=== PATIENT | male | born 1955 | race Caucasian/White ===

== ENCOUNTER 2019-06-05 08:33 | Outpatient (CLI) | payer MEDICAID ==
--- NOTE | 2019-06-05 16:41 | XRAY Report ---
Reason: BILAT SHOULDER JOINT PAIN Procedure Date: 06/05/2019 Accession Number: [id number] / [id number] Procedure: XRS - Shoulder 2 View BILAT CPT Code: FULL RESULT: EXAM: BILATERAL SHOULDER RADIOGRAPHY EXAM DATE: 06/05/2019 09:05 AM. CLINICAL HISTORY: Bilateral shoulder joint pain. COMPARISON: None. TECHNIQUE: 3 views. FINDINGS: Bones: No acute bony abnormality. There is bilateral cortical irregularity of the right and left humeral head/neck junction, at the expected insertion of the rotator cuff tendon. Joints: The glenohumeral and acromioclavicular joints are normal. Soft tissues: The visualized hemithorax is unremarkable. No soft tissue swelling. No definite soft tissue calcification. IMPRESSION: 1. No acute bony abnormality. 2. Possible bilateral distal rotator cuff tendinitis. No soft tissue calcification. RADIA
[2019-06-05 19:24] LABS: ALBUMIN 4.3 g/dL (3.2-5.5); ALBUMIN/GLOBULIN RATIO 1.4 (1.0-2.2); ALKALINE PHOSPHATASE 59 IU/L (42-121); ALT ALANINE AMINOTRANSFERASE 18 IU/L (10-60); AST ASPARTATE AMINOTRANSFERASE 28 IU/L (10-42); BILIRUBIN,TOTAL 1.3 mg/dL (0.2-1.0); BUN - BLOOD UREA NITROGEN 9 mg/dL (6-20); CALCIUM 9.4 mg/dL (8.5-10.3); CARBON DIOXIDE - CO2 30 mmol/L (21-32); CHLORIDE 98 mmol/L (101-111); CHOLESTEROL 229 mg/dL; CREATININE 0.8 mg/dL (0.6-1.2); GFR - MDRD 98 (>89); GLUCOSE 124 mg/dL (70-100); HDL CHOLESTEROL 77 mg/dL; SODIUM 137 mmol/L (135-145); TOTAL PROTEIN 7.4 g/dL (6.7-8.2); VLDL CHOLESTEROL 39 mg/dL
[2019-06-05 19:25] LABS: LDL CHOLESTEROL,CALCULATED 113 mg/dL; LDL/HDL RATIO 1.5 (<3.6)
== END 2019-06-05 08:34 | disposition home or self-care (01) ==
LOC: DI.S 08:33
PROVIDERS: ATTEND Internal Medicine
DX: M25.511 Pain in right shoulder (principal); M25.512 Pain in left shoulder; I10 Essential (primary) hypertension; Z12.5 Encounter for screening for malignant neoplasm of prostate
CPT/HCPCS: 36415; 80053; 80061; 83721; 84153

== ENCOUNTER 2019-06-22 22:58 | Emergency (ER) | payer MEDICAID ==
--- NOTE | 2019-06-22 23:06 | ED Physician Documentation ---
History of Present Illness - Stated complaint Stated Complaint: FAST HEART/PANIC/SHAKING - Additonal information Additional information: This is a 64-year-old male who has had episodes of atrial fibrillation the past, who presents with shaking, anxiety about a fast heart rate, and resolved chest discomfort. Patient states that he drank alcohol yesterday, he rarely does this, but He thinks it was causing him to feel under the weather today. He went to lay down to sleep tonight, and he felt that his heart was racing slightly and he felt tremulous all over. He became very anxious that he was going into atrial fibrillation, which she has had in the past. This prompted him to come to the emergency department for further evaluation. He had a brief episode of chest discomfort which resolved, No diaphoresis, no vomiting. His breathing feels slightly tight, he states he Is a previous smoker and has had use inhaler from time to time for wheezing. No history of blood clots, no leg swelling, no chest pain or shortness of breath at this time. Review of Systems Constitutional: denies: Fever Nose: denies: Rhinorrhea / runny nose Throat: denies: Sore throat Cardiac: reports: Palpitations Respiratory: denies: Hemoptysis GI: denies: Abdominal Pain : denies: Dysuria Skin: denies: Rash Psychiatric: reports: Anxiety PD PAST MEDICAL HISTORY - Past Medical History Cardiovascular: Atrial fibrillation - Allergies Allergies/Adverse Reactions: Allergies Allergy/AdvReac Type Severity Reaction Status Date / Time codeine AdvReac Itching Verified 06/22/19 23:06 - Living Situation Living Situation: reports: With spouse/s.o. 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, No motor deficit, No sensory deficit, Normal speech, Other (Tremulous in all extremities and trunk.) - Psych Psych: Normal mood, Normal affect Results - Vitals Vitals: Vital Signs - 24 hr 06/22/19 06/22/19 06/23/19 23:06 23:31 00:07 Temperature 36.9 C Heart Rate 100 97 97 Respiratory 18 13 Rate Blood Pressure 178/99 H 178/99 H 162/90 H O2 Saturation 98 95 06/23/19 06/23/19 06/23/19 00:19 00:20 00:26 Temperature 37 C Heart Rate 91 Respiratory Rate Blood Pressure O2 Saturation 90 L 86 L 94 06/23/19 06/23/19 06/23/19 01:02 01:10 02:02 Temperature Heart Rate 101 H 97 95 Respiratory 15 17 15 Rate Blood Pressure 158/85 H 138/72 H O2 Saturation 94 96 Oxygen O2 Source Nasal cannula - EKG (time done) 23:02 Other comments: Other comments (Rate 110, rhythm sinus tachycardia, There is sli ght possible ST depression in the lateral leads, no ST segment elevation.) 1:35 Other comments: Other comments (Rate 97, rhythm sinus, axis normal. There is slight ST depression in the lateral leads, unchanged from prior. No ST segment elevation, no abnormal T wave inversions. Nonspecific IVCD) - Labs Labs: Laboratory Tests 06/22/19 06/22/19 06/22/19 23:40 23:40 23:40 WBC 10.4 RBC 4.58 L Hgb 14.5 Hct 41.9 L MCV 91.5 MCH 31.7 H MCHC 34.6 RDW 13.3 Plt Count 258 MPV 8.6 Neut # (Auto) 7.6 H Lymph # (Auto) 1.8 [place] # (Auto) 0.8 Eos # (Auto) 0.1 Baso # (Auto) 0.1 Absolute Nucleated RBC 0.00 Nucleated RBC % 0.0 D-Dimer Sodium 138 Potassium 3.5 Chloride 99 L Carbon Dioxide 26 Anion Gap 13.0 BUN 13 Creatinine 0.6 Estimated GFR (MDRD) 137 Glucose 127 H Calcium 9.0 Total Bilirubin 0.5 AST 27 ALT 20 Alkaline Phosphatase 54 Troponin I High Sens 4.7 Total Protein 7.4 Albumin 4.1 Globulin 3.3 Albumin/Globulin Ratio 1.2 Lipase 25 06/22/19 06/23/19 23:40 01:30 WBC RBC Hgb Hct MCV MCH MCHC RDW Plt Count MPV Neut # (Auto) Lymph # (Auto) [place] # (Auto) Eos # (Auto) Baso # (Auto) Absolute Nucleated RBC Nucleated RBC % D-Dimer < 200.0 L Sodium Potassium Chloride Carbon Dioxide Anion Gap BUN Creatinine Estimated GFR (MDRD) Glucose Calcium Total Bilirubin AST ALT Alkaline Phosphatase Troponin I High Sens 5.0 Total Protein Albumin Globulin Albumin/Globulin Ratio Lipase - Rads (name of study) CXR Radiology: Other (No acute abnormality seen) PD MEDICAL DECISION MAKING - ED course Complexity details: considered differential (Atrial fibrillation, pneumothorax, dysrhythmia, alcohol withdrawal, electrolyte abnormality pneumonia, ACS, anxiety, COPD/asthma) ED course: On examination patient is nontoxic-appearing, he is hypertensive, he is tremulous and he appears quite anxious. He did drink alcohol somewhat heavily yesterday, but he states that he rarely drinks, and has never had alcohol withdrawal. This is corroborated by his , alcohol withdrawal appears unlikely. Patient given 1 mg Ativan his tremulousness stopped, and is felt much better afterwards. 2 EKGs greater than 2 hours apart show slight lateral ST depressions, Which are stable and unchanged. Chest x-ray shows no acute abnormality. 2 troponins are negative. Given patient's history as well as his troponins ACS is highly unlikely. After receiving the Ativan he fell asleep and while sleeping he would briefly desaturate, so was put on nasal cannula. When he was awake his oxygen level is normal. He is low risk for PE, but he is >50 and was tachycardic. D-dimer was drawn and is negative. He is given a breathing treatment for his wheezing and afterwards he felt improved, his lungs were clear. On repeat examination patient is feeling well, his heart rate is no longer tachycardic, but he feels ready to go home. I discussed with him that I am not sure what the cause of his episode of tremulousness and palpitations was, he was in sinus rhythm here, and he has no history of panic attacks, though from his description sounds like anxiety may have been a contributing factor. I recommend that he avoid alcohol and drugs, that he get adequate rest, hydrate appropriately, and that he follow-up with his primary care provider on his symptoms, and he could consider sleep testing as well. If he has any new or concerning symptoms such as chest pain, shortness of breath not relieved by his inhaler, leg swelling, or any other concerning symptoms he should return to the emergency department immediately. Patient agrees with this plan was discharged in the care of his Departure - Departure Disposition: 01 Home, Self Care Clinical Impression: Palpitations Chest pain Qualifiers: Chest pain type: unspecified Qualified Code(s): R07.9 - Chest pain, unspecified Condition: Good Instructions: ED Chest Pain Atypical Unkn Cause Follow-Up: Your,PCP [Other] - Within 1 week Comments: You were seen today for shakiness, chest pain, palpitations. We do not see an obvious cause of your symptoms on our work-up today. Please drink adequate fluids, get rest, and avoid alcohol. If you are having wheezing please use your inhaler. If you develop recurrent chest pain, shortness of breath, or any other concerning symptoms return to the emergency department. Otherwise please follow-up with your primary care provider Discharge Date/Time: 06/23/19 02:40
[2019-06-22] MEDS ORDERED: LORazepam 1 MG TABLET PO STA (23:35)
[2019-06-22 23:52] LABS: BASOPHILS # (AUTO) 0.1 10^3/uL (0.0-0.1); BASOPHILS % (AUTO) 0.6 %; EOSINOPHILS # (AUTO) 0.1 10^3/uL (0.0-0.7); HGB - HEMOGLOBIN 14.5 g/dL (14.0-18.0); LYMPHOCYTES # (AUTO) 1.8 10^3/uL (1.5-3.5); LYMPHOCYTES % (AUTO) 17.7 %; MEAN CORPUSCULAR HEMOGLOBIN 31.7 pg (27.0-31.0); MEAN CORPUSCULAR HGB CONC 34.6 g/dL (32.0-36.0); MEAN CORPUSCULAR VOLUME 91.5 fL (80.0-94.0); MEAN PLATELET VOLUME 8.6 fL (7.4-11.4); MONOCYTES # (AUTO) 0.8 10^3/uL (0.0-1.0); MONOCYTES % (AUTO) 7.6 %; NEUTROPHILS # (AUTO) 7.6 10^3/uL (1.5-6.6); NEUTROPHILS % (AUTO) 72.7 %; PLT - PLATELET COUNT 258 10^3/uL (130-450); RED BLOOD COUNT 4.58 10^6/uL (4.70-6.10); RED CELL DISTRIBUTION WIDTH 13.3 % (12.0-15.0); WHITE BLOOD COUNT 10.4 x10^3/uL (4.8-10.8)
--- NOTE | 2019-06-22 23:55 | XRAY Report ---
Reason: chest pain Procedure Date: 06/22/2019 Accession Number: [id number] / [id number] Procedure: XR - Chest 1 View X-Ray CPT Code: 14161 FULL RESULT: EXAM: CHEST RADIOGRAPHY EXAM DATE: 06/22/2019 11:45 PM. CLINICAL HISTORY: Chest pain. COMPARISON: None. TECHNIQUE: 1 view. FINDINGS: Lungs/Pleura: No alveolar consolidation or pleural effusion seen. No pneumothorax. Mediastinum: Within exam limitations, the cardiomediastinal contour is normal. Other: None. IMPRESSION: 1. No acute abnormality seen in the chest. RAD[facility]
[2019-06-23 00:04] LABS: ALBUMIN 4.1 g/dL (3.2-5.5); ALBUMIN/GLOBULIN RATIO 1.2 (1.0-2.2); BILIRUBIN,TOTAL 0.5 mg/dL (0.2-1.0); CREATININE 0.6 mg/dL (0.6-1.2); TOTAL PROTEIN 7.4 g/dL (6.7-8.2)
[2019-06-23] MEDS ORDERED: IPRATROPIUM/ALBUTEROL 3 ML NEB INH STA (00:45)
[2019-06-23 02:03] VITALS: BP 138/72
== END 2019-06-23 02:40 | disposition home or self-care (01) ==
LOC: ED 22:58
DX: R00.0 Tachycardia, unspecified (principal); R07.9 Chest pain, unspecified; R25.1 Tremor, unspecified; R06.2 Wheezing; F41.9 Anxiety disorder, unspecified; I10 Essential (primary) hypertension; Z87.891 Personal history of nicotine dependence
CPT/HCPCS: 36415; 71045; 80053; 83690; 84484; 85025; 85379; 93005; 94640; 99283; 99284; J8499

== ENCOUNTER 2019-07-19 09:57 | Outpatient (CLI) | payer MEDICAID ==
--- NOTE | 2019-07-19 12:12 | MRI Report ---
Reason: PAIN IN JOINT SHOULDER Procedure Date: 07/19/2019 Accession Number: [id number] / [id number] Procedure: MRI - Shoulder RT W/O CPT Code: Final Report FULL RESULT: EXAM: RIGHT SHOULDER MRI WITHOUT CONTRAST EXAM DATE: 07/19/2019 10:35 AM. CLINICAL HISTORY: Pain in joint shoulder. COMPARISON: None. TECHNIQUE: Multiplanar, multisequence T1-weighted and fluid-sensitive sequences of the shoulder without contrast. Other: None. FINDINGS: Acromioclavicular Region: The acromion is type II unipartite. 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 The coracoacromial and coracoclavicular ligaments are intact. Some bursal fluid is present. Glenohumeral Region: No subluxation. No effusion or loose bodies. The articular cartilage is unremarkable. The glenohumeral ligaments and joint capsule are unremarkable. Bone Marrow: No fracture, marrow edema or bone lesions. Labrum: Some internal signal seen in the anterior and superior labrum, no evidence for labral tears. Musculature/Rotator Cuff: Abnormal increased T2 signal seen within the distal subscapularis and supraspinatus musculotendinous junctions. No focal discrete full-thickness fluid-filled gaps. Infraspinatus shows some mild thickening at the attachment onto the humerus. Teres minor is normal. No proximal muscle bundle fatty atrophy. Biceps Tendon: Long head of biceps tendon is swollen and shows some increased T2 signal within the horizontal intra-articular portion. IMPRESSION: 1. Type II unipartite undersurface osseous acromion shape. 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 2. No evidence for labral tears, some internal degenerative signal is present. No loose bodies are identified. 3. Increased T2 signal in the distal subscapularis and supraspinatus musculotendinous junctions, these are degenerative changes. No partial or full-thickness tears are noted. There is also some tendinopathy of the distal infraspinatus as well. 4. Type I signal change at the proximal aspect long head of biceps tendon. RAD[facility]
== END 2019-07-19 09:58 | disposition home or self-care (01) ==
LOC: DI 09:57
PROVIDERS: ATTEND Orthopaedic Surgery Sports Medicine
DX: M19.011 Primary osteoarthritis, right shoulder (principal); M67.911 Unspecified disorder of synovium and tendon, right shoulder